=== PATIENT | female | born 1970 | race Two or more races ===

== ENCOUNTER 2022-06-06 20:27 | Inpatient (IN) | payer OTHER ==
[~2022-06-06] VITALS: Ht 160 cm; Wt 98.0 kg
[2022-06-06] MEDS ORDERED: OXYCODONE W/ ACETAMINOPHEN 5/325MG TABLET PO ONE (21:00)
[2022-06-06] MEDS ORDERED: ONDANSETRON ODT 4 MG TAB PO ONE (21:00)
[2022-06-06 22:06] LABS: Basophils # (auto) 0 10 ^3/uL (0-0.2); Basophils % (auto) 0.2 % (0.0-2.0); Eosinophils # (auto) 0.3 10 ^3/uL (0-0.8); Eosinophils % (auto) 2.3 % (0.0-7.0); Hematocrit 37.5 % (36.0-46.0); Hemoglobin 12.1 g/dL (12.2-16.2); Lymphocytes # (auto) 2.1 10 ^3/uL (0.4-5.4); Lymphocytes % (auto) 18.8 % (10.0-50.0); Mean Corpuscular Hemoglobin 29.8 pg (28.0-32.0); Mean Corpuscular Hgb Conc. 32.3 g/dL (32.0-36.0); Mean Corpuscular Volume 92.1 fL (80.0-100.0); Monocytes # (auto) 0.9 10 ^3/uL (0-1.3); Monocytes % (auto) 7.6 % (0.0-12.0); Neutrophils % (auto) 71.1 % (37.0-80.0); Red Blood Cells 4.07 10^6/uL (4.0-5.20); Red Cell Distribution Width 15.3 % (11.8-14.3); White Blood Cell 11.2 10^3/uL (4.4-10.8)
[2022-06-06 22:21] LABS: Albumin 3.5 g/dL (3.4-5.0); Calcium 9.2 mg/dL (8.5-10.1); Potassium 3.8 mmol/L (3.5-5.1)
[2022-06-06 22:30] LABS: BUN/Creatinine Ratio 14.1; Bilirubin, Total 0.6 mg/dL (0.2-1.0); Total Protein 8.2 g/dL (6.4-8.2)
[2022-06-07] MEDS ORDERED: SODIUM CHLORIDE 0.9% 1,000 ML IV ONE (02:15)
[2022-06-07] MEDS ORDERED: ONDANSETRON HCL 4 MG/2 ML VIAL IV PRN (04:30)
[2022-06-07] MEDS ORDERED: MORPHINE SULFATE INJ 2 MG/ml SYRG IV PRN (04:30)
[2022-06-07] MEDS: PANTOPRAZOLE 40 MG/10 ML VIAL INJ IV SCH (08:53)
[2022-06-07] MEDS: SODIUM CHLORIDE 0.9% 1,000 ML IV SCH ×2 (08:57→16:16)
[2022-06-07 13:07] LABS: Cholesterol 161 mg/dL (< 200); Lipase 335 U/L (73-393); Triglycerides 63 mg/dL (< 150)
[2022-06-07 13:10] LABS: HDL Cholesterol 68 mg/dL (40-59); LDL Cholesterol 89 mg/dL (< 100)
[2022-06-07 18:01] VITALS: BP_SYST 117; BP_SYST 119; BP_DIAS 68; BP_DIAS 80
[2022-06-07 20:30] VITALS: BP 117/54
[2022-06-07 21:54] VITALS: BP 117/54
[2022-06-08] MEDS: SODIUM CHLORIDE 0.9% 1,000 ML IV SCH ×2 (04:02→09:37)
[2022-06-08 04:38] VITALS: BP 117/54
[2022-06-08 06:18] LABS: Basophils # (auto) 0 10 ^3/uL (0-0.2); Basophils % (auto) 0.4 % (0.0-2.0); Eosinophils # (auto) 0.2 10 ^3/uL (0-0.8); Eosinophils % (auto) 3.3 % (0.0-7.0); Hematocrit 32.5 % (36.0-46.0); Lymphocytes # (auto) 1.8 10 ^3/uL (0.4-5.4); Lymphocytes % (auto) 32.1 % (10.0-50.0); Mean Corpuscular Hemoglobin 31.3 pg (28.0-32.0); Monocytes # (auto) 0.6 10 ^3/uL (0-1.3); Monocytes % (auto) 9.9 % (0.0-12.0); Neutrophils % (auto) 54.3 % (37.0-80.0); Nucleated Red Blood Cells % 0.1 %; Red Blood Cells 3.53 10^6/uL (4.0-5.20); White Blood Cell 5.6 10^3/uL (4.4-10.8)
[2022-06-08 06:37] LABS: Albumin 3.1 g/dL (3.4-5.0); Calcium 8.2 mg/dL (8.5-10.1)
[2022-06-08 06:40] LABS: BUN/Creatinine Ratio 11.7; Bilirubin, Total 0.7 mg/dL (0.2-1.0)
[2022-06-08] MEDS ORDERED: LEVOTHYROXINE SODIUM 100 MCG TAB PO SCH (07:00)
[2022-06-08 08:00] VITALS: BP 112/47
[2022-06-08 09:00] VITALS: BP 112/47
[2022-06-08] MEDS: PANTOPRAZOLE 40 MG/10 ML VIAL INJ IV SCH (09:25)
[2022-06-08] MEDS ORDERED: hydrOXYchloroQUINE SULFATE 200 MG TAB PO SCH (10:00)
[2022-06-08 13:00] VITALS: BP 105/56
[2022-06-08 13:40] VITALS: BP 124/68
== END 2022-06-08 14:00 | disposition home or self-care (01) | DRG 438 ==
LOC: ER 20:27 → OVERFLOW 06-07 04:31 → WEST WING 06-07 18:07
PROVIDERS: ADMIT Nurse Practitioner; ATTEND Internal Medicine
DX: K85.90 Acute pancreatitis without necrosis or infection, unspecified (principal); U07.1 COVID-19; E66.01 Morbid (severe) obesity due to excess calories; E03.9 Hypothyroidism, unspecified; M19.90 Unspecified osteoarthritis, unspecified site; Z68.38 Body mass index [BMI] 38.0-38.9, adult; Z98.84 Bariatric surgery status
CPT/HCPCS: 36415; 71045; 74176; 80053; 80061; 83690; 85025; 87426; 96360; C9113; G0378; Q0162

== ENCOUNTER 2023-12-17 19:21 | Emergency (ER) | payer OTHER ==
[~2023-12-17] VITALS: Ht 160 cm; Wt 110.2 kg
[2023-12-17 19:40] VITALS: BP 143/74; RESP 18; O2SAT 99
[2023-12-17 19:57] VITALS: PULSE 61
[2023-12-17] MEDS: SODIUM CHLORIDE 0.9% 1,000 ML IV ONE (21:00)
[2023-12-17 21:01] LABS: Basophils # (auto) 0 10 ^3/uL (0-0.2); Basophils % (auto) 0.2 % (0.0-2.0); Eosinophils # (auto) 0.3 10 ^3/uL (0-0.8); Eosinophils % (auto) 3.5 % (0.0-7.0); Hematocrit 34.5 % (36.0-46.0); Hemoglobin 11.3 g/dL (12.2-16.2); Lymphocytes # (auto) 1.9 10 ^3/uL (0.4-5.4); Lymphocytes % (auto) 23.2 % (10.0-50.0); Mean Corpuscular Hemoglobin 27.7 pg (28.0-32.0); Mean Corpuscular Hgb Conc. 32.7 g/dL (32.0-36.0); Mean Corpuscular Volume 84.5 fL (80.0-100.0); Monocytes # (auto) 0.7 10 ^3/uL (0-1.3); Monocytes % (auto) 7.8 % (0.0-12.0); Neutrophils # (auto) 5.5 10 ^3/uL (1.6-8.6); Neutrophils % (auto) 65.3 % (37.0-80.0); Red Blood Cells 4.08 10^6/uL (4.0-5.20); Red Cell Distribution Width 16.6 % (11.8-14.3); White Blood Cell 8.4 10^3/uL (4.4-10.8)
[2023-12-17 21:31] LABS: Anion Gap 3 (5-15); Carbon Dioxide 27 mmol/L (20-30); Chloride 109 mmol/L (98-107); Potassium 3.7 mmol/L (3.5-5.1); Sodium 139 mmol/L (136-145)
[2023-12-17 21:32] LABS: Calcium 9.4 mg/dL (8.5-10.1)
[2023-12-17 21:37] LABS: BUN/Creatinine Ratio 13.8 (10.0-20.0); Blood Urea Nitrogen 9 mg/dL (9-23); Glucose 100 mg/dL (74-106)
[2023-12-17] MEDS ORDERED: HYDR50TA32 PO (23:24)
== END 2023-12-18 01:30 | disposition home or self-care (01) ==
LOC: ER 19:21
DX: R06.02 Shortness of breath (principal); R42 Dizziness and giddiness; E03.9 Hypothyroidism, unspecified; Z98.890 Other specified postprocedural states
CPT/HCPCS: 36415; 70450; 71045; 80048; 83880; 84484; 85025; 85379; 93005

== ENCOUNTER 2024-01-03 00:16 | Emergency (ER) | payer OTHER ==
[~2024-01-03] VITALS: Ht 160 cm; Wt 110.4 kg
[~2024-01-03 00:16] MED LIST: HYDR50TA32 PO
[2024-01-03] MEDS ORDERED: CEPH250C PO (02:03)
[2024-01-03] MEDS: DexAMETHasone SOD PHOS 10MG/1ML VIAL INJ IM ONE (02:05)
[2024-01-03] MEDS: cefTRIAXone SOD 1,000 MG VL IM ONE (02:06)
[2024-01-03 02:28] VITALS: BP 144/86; PULSE 76; RESP 16; TEMP 98.3; O2SAT 97
== END 2024-01-03 02:24 | disposition home or self-care (01) ==
LOC: ER 00:16
DX: R22.0 Localized swelling, mass and lump, head (principal); E03.9 Hypothyroidism, unspecified
CPT/HCPCS: 96372; 99284; J0696; J1100

== ENCOUNTER 2024-02-10 21:20 | Emergency (ER) | payer OTHER ==
[~2024-02-10] VITALS: Ht 160 cm; Wt 109.3 kg
[~2024-02-10 21:20] MED LIST changes: +CEPH250C PO
[2024-02-10 21:31] VITALS: BP 139/76; PULSE 110; RESP 19; O2SAT 95
[2024-02-10] MEDS: IBUPROFEN 800 MG TAB PO ONE (21:42)
[2024-02-10 22:17] LABS: COVID19 ANTIGEN SOFIA FIA NEGATIVE (NEGATIVE)
[2024-02-10 22:18] LABS: Rapid Influenza A Negative (Negative)
[2024-02-10 22:19] LABS: Rapid Influenza B Positive (Negative)
[2024-02-11 00:49] LABS: Urine Bacteria FEW /hpf (None Seen); Urine Blood TRACE /uL (Negative); Urine Clarity Turbid (Clear); Urine Color Light-Yellow (Yellow); Urine Protein, UAD Negative (Negative); Urine Specific Gravity 1.011 (1.001-1.035); Urine Urobilinogen Normal (Negative); Urine WBC 68 /hpf (0 - 5); Urine pH 5.5 (5.0-9.0)
[2024-02-11] MEDS ORDERED: OSEL75CA5 PO (02:05)
[2024-02-11] MEDS ORDERED: BACDST PO (02:05)
[2024-02-11] MEDS ORDERED: IBUP-1456 PO (02:05)
[2024-02-11 02:06] VITALS: TEMP 98.4
[2024-02-11] MEDS: ACETAMINOPHEN/CODEINE#3 (300/30mg) TAB PO ONE (02:18)
[2024-02-11] MEDS: ONDANSETRON ODT 4 MG TAB PO ONE (02:19)
== END 2024-02-11 02:19 | disposition home or self-care (01) ==
LOC: ER 21:20
DX: N39.0 Urinary tract infection, site not specified (principal); J10.1 Influenza due to other identified influenza virus with other respiratory manifestations; Z20.822 Contact with and (suspected) exposure to COVID-19
CPT/HCPCS: 36415; 81001; 87426; 87804; 99284; Q0162

== ENCOUNTER 2024-02-20 11:26 | Inpatient (IN) | payer OTHER ==
[~2024-02-20] VITALS: Ht 160 cm; Wt 114.2 kg
[~2024-02-20 11:26] MED LIST changes: +BACDST PO; +IBUP-1456 PO; +OSEL75CA5 PO
[2024-02-20] MEDS: SODIUM CHLORIDE 0.9% 1,000 ML IV ONE (12:24)
[2024-02-20] MEDS: ONDANSETRON HCL 4 MG/2 ML VIAL IV ONE (12:24)
[2024-02-20 12:35] VITALS: PULSE 90; RESP 18; O2SAT 98
[2024-02-20 12:43] LABS: Urine Bacteria MOD /hpf (None Seen); Urine Blood TRACE /uL (Negative); Urine Clarity Clear (Clear); Urine Color Light-Yellow (Yellow); Urine Protein, UAD Negative (Negative); Urine Specific Gravity 1.009 (1.001-1.035); Urine Urobilinogen Normal (Negative); Urine WBC 3 /hpf (0 - 5); Urine pH 5.5 (5.0-9.0)
[2024-02-20] MEDS: cefTRIAXone 1GM/50ML D5W 50 ML IV ONE (13:11)
[2024-02-20 13:28] LABS: Basophils # (auto) 0 10 ^3/uL (0-0.2); Basophils % (auto) 0.2 % (0.0-2.0); Eosinophils # (auto) 0.2 10 ^3/uL (0-0.8); Eosinophils % (auto) 1.7 % (0.0-7.0); Hematocrit 37.9 % (36.0-46.0); Hemoglobin 12.3 g/dL (12.2-16.2); Lymphocytes % (auto) 15.4 % (10.0-50.0); Mean Corpuscular Hemoglobin 27.6 pg (28.0-32.0); Mean Corpuscular Hgb Conc. 32.4 g/dL (32.0-36.0); Mean Corpuscular Volume 85.2 fL (80.0-100.0); Monocytes # (auto) 1.2 10 ^3/uL (0-1.3); Monocytes % (auto) 9.3 % (0.0-12.0); Neutrophils # (auto) 9.4 10 ^3/uL (1.6-8.6); Neutrophils % (auto) 73.4 % (37.0-80.0); Nucleated Red Blood Cells % 0.4 %; Platelet Count (auto) 329 10^3/uL (140-450); Red Blood Cells 4.46 10^6/uL (4.0-5.20); Red Cell Distribution Width 16.5 % (11.8-14.3); White Blood Cell 12.9 10^3/uL (4.4-10.8)
[2024-02-20 13:31] LABS: Alanine Aminotransferase 19 U/L (7-40); Albumin 4.3 g/dL (3.2-4.8); Alkaline Phosphatase 88 U/L (46-116); Anion Gap 7 (5-15); Aspartate Aminotransferase 15 U/L (13-40); BUN/Creatinine Ratio 14.3 (10.0-20.0); Blood Urea Nitrogen 10 mg/dL (9-23); Calcium 9.5 mg/dL (8.7-10.4); Carbon Dioxide 25 mmol/L (20-30); Chloride 106 mmol/L (98-107); Glucose 101 mg/dL (74-106); Lipase 70 U/L (12-53); Potassium 4.1 mmol/L (3.5-5.1); Sodium 138 mmol/L (136-145)
[2024-02-20 13:32] LABS: Bilirubin, Total 0.3 mg/dL (0.2-1.0); Total Protein 8.5 g/dL (5.7-8.2)
[2024-02-20 14:04] LABS: Anisocytosis Slight; Platelet Estimate Adequate
[2024-02-20] MEDS ORDERED: ONDANSETRON HCL 4 MG/2 ML VIAL IV PRN (16:30)
[2024-02-20] MEDS ORDERED: DOCUSATE SOD 100 MG CAP PO PRN (16:30)
[2024-02-20] MEDS ORDERED: HYDROmorphone HCL 2 MG/ML VL/or syr IV PRN (16:30)
[2024-02-20] MEDS: LACTATED RINGER'S 1,000 ML IV ONE (17:19)
[2024-02-20] MEDS: HYDROcodone-ACET 5/325MG TAB PO PRN (17:40)
[2024-02-20] MEDS: ACETAMINOPHEN 325 MG TAB PO PRN (18:28)
[2024-02-20 19:40] VITALS: PULSE 79; RESP 16; O2SAT 93
[2024-02-20] MEDS: SODIUM CHLOR 0.9% PF (SALINE LOCK) 10ML VIAL/SYR IV SCH (22:51)
[2024-02-20] MEDS ORDERED: FOLI-119 PO (23:33)
[2024-02-20] MEDS ORDERED: HYDR200T36 PO (23:33)
[2024-02-20] MEDS ORDERED: LEVO125T7 PO (23:33)
[2024-02-20 23:34] VITALS: BP 126/60; PULSE 63; RESP 20; TEMP 98.1; O2SAT 95
[2024-02-21 01:00] VITALS: BP 123/60; PULSE 69; RESP 18; TEMP 98; O2SAT 98
[2024-02-21 05:00] VITALS: BP 122/62; PULSE 78; RESP 18; TEMP 98.4; O2SAT 95
[2024-02-21 09:00] VITALS: BP 100/50; PULSE 76; RESP 17; TEMP 98.2; O2SAT 95
[2024-02-21] MEDS: ENOXAPARIN SOD 40 MG/0.4 ML SYRINGE SC SCH (09:30)
[2024-02-21] MEDS: cefTRIAXone 1GM/50ML D5W 50 ML IV SCH (09:30)
[2024-02-21 11:47] LABS: Basophils # (auto) 0 10 ^3/uL (0-0.2); Basophils % (auto) 0.3 % (0.0-2.0); Eosinophils # (auto) 0.2 10 ^3/uL (0-0.8); Eosinophils % (auto) 3.5 % (0.0-7.0); Hematocrit 31.9 % (36.0-46.0); Hemoglobin 10.4 g/dL (12.2-16.2); Lymphocytes # (auto) 1.7 10 ^3/uL (0.4-5.4); Lymphocytes % (auto) 25.9 % (10.0-50.0); Mean Corpuscular Hemoglobin 27.7 pg (28.0-32.0); Mean Corpuscular Hgb Conc. 32.8 g/dL (32.0-36.0); Mean Corpuscular Volume 84.7 fL (80.0-100.0); Monocytes # (auto) 0.6 10 ^3/uL (0-1.3); Monocytes % (auto) 9.3 % (0.0-12.0); Nucleated Red Blood Cells % 0.1 %; Platelet Count (auto) 292 10^3/uL (140-450); Red Blood Cells 3.76 10^6/uL (4.0-5.20); Red Cell Distribution Width 16.2 % (11.8-14.3); White Blood Cell 6.6 10^3/uL (4.4-10.8)
[2024-02-21 11:56] LABS: Alanine Aminotransferase 13 U/L (7-40); Alkaline Phosphatase 78 U/L (46-116); Amylase 63 U/L (30-118); Anion Gap 5 (5-15); Aspartate Aminotransferase 11 U/L (13-40); BUN/Creatinine Ratio 10.3 (10.0-20.0); Bilirubin, Total 0.2 mg/dL (0.2-1.0); Blood Urea Nitrogen 7 mg/dL (9-23); Calcium 9.3 mg/dL (8.7-10.4); Carbon Dioxide 26 mmol/L (20-30); Chloride 107 mmol/L (98-107); Cholesterol 135 mg/dL (< 200); Glucose 114 mg/dL (74-106); HDL Cholesterol 42 mg/dL (40-59); LDL Cholesterol 73 mg/dL (< 100); Potassium 3.9 mmol/L (3.5-5.1); Sodium 138 mmol/L (136-145); Total Protein 7.9 g/dL (5.7-8.2); Triglycerides 117 mg/dL (< 150)
[2024-02-21] MEDS: LACTATED RINGER'S 1,000 ML IV SCH (12:17)
[2024-02-21 12:26] LABS: Erythrocyte Sedimentation Rate 87 mm/hr (0-20)
[2024-02-21 13:00] VITALS: BP 127/62; PULSE 66; RESP 17; TEMP 98.8; O2SAT 98
[2024-02-21] MEDS ORDERED: METH2.5T PO (15:00)
[2024-02-21] MEDS ORDERED: [UNRECOGNIZED DRUG - CODE] SC (15:00)
[2024-02-21] MEDS: SENNA 8.6 MG TAB PO PRN (15:30)
[2024-02-21 17:00] VITALS: BP 133/68; PULSE 65; RESP 18; TEMP 98.3; O2SAT 100
[2024-02-21 21:00] VITALS: BP 108/54; PULSE 71; RESP 18; TEMP 98.2; O2SAT 95
[2024-02-22] VITALS (7 sets, daily range): BP systolic 107–142; BP diastolic 56–85; PULSE 60–71; RESP 16–18; TEMP 97.9–98.4; O2SAT 95–98
[2024-02-22 13:18] LABS: Basophils # (auto) 0 10 ^3/uL (0-0.2); Basophils % (auto) 0.3 % (0.0-2.0); Eosinophils # (auto) 0.3 10 ^3/uL (0-0.8); Eosinophils % (auto) 4.6 % (0.0-7.0); Hemoglobin 11.7 g/dL (12.2-16.2); Lymphocytes % (auto) 34.4 % (10.0-50.0); Mean Corpuscular Hemoglobin 28.5 pg (28.0-32.0); Mean Corpuscular Hgb Conc. 33.4 g/dL (32.0-36.0); Mean Corpuscular Volume 85.4 fL (80.0-100.0); Monocytes # (auto) 0.5 10 ^3/uL (0-1.3); Monocytes % (auto) 8.7 % (0.0-12.0); Neutrophils # (auto) 3.1 10 ^3/uL (1.6-8.6); Nucleated Red Blood Cells % 0.1 %; Platelet Count (auto) 350 10^3/uL (140-450); Red Cell Distribution Width 15.8 % (11.8-14.3); White Blood Cell 5.9 10^3/uL (4.4-10.8)
[2024-02-22 13:29] LABS: Chloride 106 mmol/L (98-107); Potassium 3.8 mmol/L (3.5-5.1); Sodium 139 mmol/L (136-145)
[2024-02-22 13:30] LABS: Anion Gap 4 (5-15); Calcium 9.7 mg/dL (8.7-10.4); Carbon Dioxide 29 mmol/L (20-30)
[2024-02-22 13:35] LABS: BUN/Creatinine Ratio 12.9 (10.0-20.0); Blood Urea Nitrogen 9 mg/dL (9-23); Glucose 102 mg/dL (74-106)
[2024-02-23 01:00] VITALS: BP 123/48; PULSE 71; RESP 17; TEMP 98.4; O2SAT 99
[2024-02-23 05:00] VITALS: BP 139/81; PULSE 62; RESP 17; TEMP 98.2; O2SAT 99
[2024-02-23] MEDS: LEVOTHYROXINE SODIUM 50 MCG TAB PO SCH (06:09)
[2024-02-23 08:00] VITALS: PULSE 68; RESP 17; O2SAT 95
[2024-02-23 09:05] VITALS: BP 137/66; PULSE 68; RESP 17; TEMP 98.2; O2SAT 95
[2024-02-23 12:15] VITALS: BP 139/75; PULSE 70; RESP 17; TEMP 98.4; O2SAT 96
[2024-02-23] MEDS ORDERED: CIPR500T4 PO (12:34)
[2024-02-23 13:05] VITALS: BP 139/75; PULSE 70; RESP 17; TEMP 98.4; O2SAT 96
== END 2024-02-23 13:47 | disposition home or self-care (01) | DRG 690 ==
LOC: ER 11:26 → OVERFLOW 16:26 → WEST WING 23:17
PROVIDERS: ADMIT Internal Medicine Hematology & Oncology; ATTEND Internal Medicine
DX: N39.0 Urinary tract infection, site not specified (principal); Z68.41 Body mass index [BMI] 40.0-44.9, adult; M06.9 Rheumatoid arthritis, unspecified; E66.9 Obesity, unspecified; E03.9 Hypothyroidism, unspecified; F41.9 Anxiety disorder, unspecified; Z79.899 Other long term (current) drug therapy
CPT/HCPCS: 36415; 74176; 80048; 80053; 80061; 81001; 82150; 83605; 83690; 84439; 84443; 84484; 84702; 85025; 85652; 86141; 87040; 87086; 87088; 87186; 96361; 96365; 96375; G0378; J2405